=== PATIENT | male | born 1945 | race Asian ===

== ENCOUNTER → 2019-08-01 | Day surgery (SDC) | payer OTHER, BC ==
[2019-07-24 16:07] VITALS: BMI 21.2
[~2019-08-01] MED LIST: ACETAMINOPHEN 325 MG TABLET (FP) PO PRN; ACETYLCHOLINE 1:100 INTRA-OCUL 20 MG/2 ML KIT ONE; BACITRACIN/POLYMYXIN OPH OINT 3.5 GM TUBE ONE; BETAXOLOL HCL 0.25% OPHTHALMIC 10 ML DROPSBTL ONE; CYCLOPENTOLATE HCL 1% OPHTH SOLN 2 ML BOTTLE ONE; EPI-SHUGARCAINE (EPINEPHRINE 0.025% & LIDOCAINE-PF 0.75%) 4ML ONE; KETOROLAC TROMETHAMINE 0.5% EYE DROP 1 DROP DROPS ONE; MIDAZOLAM HCL 2 MG/2 ML SINGLE DOSE VIAL ONE; NEO/POLYMYX B SULF/DEXAMETH OPHTHALMIC 5ML BOTTLE ONE; OFLOXACIN 0.3% OPHTHALMIC SOLUTION 5 ML BOTTLE ONE; PHENYLEPHRINE 2.5% OPHTH SOLN 15 ML BOTTLE ONE; POVIDONE-IODINE 5% OPHTHALMIC PREP 30 ML SOLUTION ONE; TETRACAINE 0.5% OPHTH SOLN 2 ML BOTTLE ONE; TROPICAMIDE 1% OPHTH SOLN 15 ML BOTTLE ONE
[2019-08-01] MEDS: CYCLOPENTOLATE HCL 1% OPHTH SOLN 2 ML BOTTLE OS SCH ×5 (10:25→10:45)
[2019-08-01] MEDS: OFLOXACIN 0.3% OPHTHALMIC SOLUTION 5 ML BOTTLE OS SCH ×5 (10:25→10:45)
[2019-08-01] MEDS: PHENYLEPHRINE 2.5% OPHTH SOLN 15 ML BOTTLE OS SCH ×5 (10:25→10:45)
[2019-08-01] MEDS: TROPICAMIDE 1% OPHTH SOLN 15 ML BOTTLE OS SCH ×5 (10:25→10:45)
[2019-08-01] MEDS: KETOROLAC TROMETHAMINE 0.5% EYE DROP 1 DROP DROPS OS SCH ×5 (10:25→10:45)
[2019-08-01 14:02] VITALS: PULSE 76
[2019-08-01 15:29] VITALS: BP 129/79; TEMP 97
--- NOTE | 2019-08-01 20:18 | OP ---
DATE OF OPERATION: 08/01/2019 PREOPERATIVE DIAGNOSIS: Cataract, left eye. POSTOPERATIVE DIAGNOSIS: Cataract, left eye. PROCEDURE: Cataract extraction via phacoemulsification with insertion of posterior chamber lens implant, left eye, Toric lens. SURGEON: Jackie Wilson MD FURNITURE BUILDER: Jackie Wilson MD ANESTHESIA: Topical with sedation. ESTIMATED BLOOD LOSS: Less than 1 mL. COMPLICATIONS: None. SPECIMENS: None. DESCRIPTION OF PROCEDURE: The patient was identified in the holding area. After all risks, benefits, and alternatives were explained to the patient, informed consent was obtained. The left eye was marked with a marking pen. The patient then entered the operating room on an eye stretcher. After a formal time-out was performed, topical tetracaine eye drops were instilled onto the left eye. The left eye was then prepped and draped in the usual sterile fashion. Before the eye was prepped and draped, the patient was asked to sit up and look straight ahead, and the cardinal axes of astigmatism were marked using a Toric bubble marker and a Toric marking pen. Then, again, the left eye was prepped and draped in the usual sterile fashion. An eyelid speculum was placed beneath the eyelid of the left eye. Then the axis of astigmatism was marked onto the left cornea, which was noted to be 85 degrees. Then an inferotemporal paracentesis incision was created using a 15-degree blade. Topical preservative-free epinephrine and preservative-free lidocaine was then injected into the anterior chamber. Viscoelastic was then injected into the anterior chamber. A 2.4-mm keratome blade was then used to make a superotemporal incision. A 360-degree continuous curvilinear capsulorrhexis was then created using bent cystotome and Utrata forceps. Hydrodissection was performed using balanced saline solution on a cannula. Phacoemulsification was introduced to disassemble and remove the nucleus in its entirety. Irrigation/aspiration was then used to remove any remaining cortical material from the eye. The capsular bag was reformed using viscoelastic. An Shaheed Model [id number] with a power of 26.0 diopter serial number [id number] was inspected and found to be defect free and injected in the capsular bag. Irrigation/aspiration was then used to remove any remaining viscoelastic including posterior to the optic. The intraocular lens was rotated so that the axis of astigmatism on the corneal matched the axis of astigmatism on the intraocular lens, which was noted to be 85 degrees. Topical Miochol was then administered, and the pupil came down and was round. All wounds were hydrated with balanced saline solution. Noted to be watertight. There was a red reflex present. The anterior chamber was deep. The lens was perfectly centered in the capsular bag with the axis of astigmatism at 85 degrees. There was a red reflex present. The eye had adequate pressure, and all wounds were dry. Then antibiotic eyedrops and ointment were then administered to the left eye. The eyelid speculum was removed from the left eye. The left eye was shielded. The patient tolerated the procedure well. Left the operating room in stable condition to follow up in the eye clinic tomorrow morning at 10 o'clock. JACKIE WILSON M.D. [id number]
== END | disposition home or self-care (01) ==
LOC: FASU 09:44
PROVIDERS: ATTEND Ophthalmology
PROC: 08RK3JZ Replacement of Left Lens with Synthetic Substitute, Percutaneous Approach (ICD-10-PCS; principal; 2019-08-01 12:54)
DX: H26.9 Unspecified cataract (principal)

== ENCOUNTER 2019-08-15 11:55 | Day surgery (SDC) | payer OTHER, BC ==
[2019-08-14 09:25] VITALS: BMI 21.2
[~2019-08-15 11:55] MED LIST changes: -ACETYLCHOLINE 1:100 INTRA-OCUL 20 MG/2 ML KIT ONE; -BACITRACIN/POLYMYXIN OPH OINT 3.5 GM TUBE ONE; -BETAXOLOL HCL 0.25% OPHTHALMIC 10 ML DROPSBTL ONE; -CYCLOPENTOLATE HCL 1% OPHTH SOLN 2 ML BOTTLE ONE; -EPI-SHUGARCAINE (EPINEPHRINE 0.025% & LIDOCAINE-PF 0.75%) 4ML ONE; -KETOROLAC TROMETHAMINE 0.5% EYE DROP 1 DROP DROPS ONE; -MIDAZOLAM HCL 2 MG/2 ML SINGLE DOSE VIAL ONE; -NEO/POLYMYX B SULF/DEXAMETH OPHTHALMIC 5ML BOTTLE ONE; -OFLOXACIN 0.3% OPHTHALMIC SOLUTION 5 ML BOTTLE ONE; -PHENYLEPHRINE 2.5% OPHTH SOLN 15 ML BOTTLE ONE; -POVIDONE-IODINE 5% OPHTHALMIC PREP 30 ML SOLUTION ONE; -TETRACAINE 0.5% OPHTH SOLN 2 ML BOTTLE ONE; -TROPICAMIDE 1% OPHTH SOLN 15 ML BOTTLE ONE
[2019-08-15] MEDS ORDERED: MIDAZOLAM HCL 2 MG/2 ML SINGLE DOSE VIAL ONE (12:09)
[2019-08-15] MEDS: TROPICAMIDE 1% OPHTH SOLN 15 ML BOTTLE OD SCH ×5 (12:15→12:35)
[2019-08-15] MEDS: CYCLOPENTOLATE HCL 1% OPHTH SOLN 2 ML BOTTLE OD SCH ×5 (12:15→12:35)
[2019-08-15] MEDS: OFLOXACIN 0.3% OPHTHALMIC SOLUTION 5 ML BOTTLE OD SCH ×5 (12:15→12:35)
[2019-08-15] MEDS: KETOROLAC TROMETHAMINE 0.5% EYE DROP 1 DROP DROPS OD SCH ×5 (12:15→12:35)
[2019-08-15] MEDS: PHENYLEPHRINE 2.5% OPHTH SOLN 15 ML BOTTLE OD SCH ×5 (12:15→12:35)
[2019-08-15] MEDS ORDERED: CYCLOPENTOLATE HCL 1% OPHTH SOLN 2 ML BOTTLE ONE (12:19)
[2019-08-15] MEDS ORDERED: PHENYLEPHRINE 2.5% OPHTH SOLN 15 ML BOTTLE ONE (12:20)
[2019-08-15] MEDS ORDERED: OFLOXACIN 0.3% OPHTHALMIC SOLUTION 5 ML BOTTLE ONE (12:20)
[2019-08-15] MEDS ORDERED: TROPICAMIDE 1% OPHTH SOLN 15 ML BOTTLE ONE (12:20)
[2019-08-15] MEDS ORDERED: KETOROLAC TROMETHAMINE 0.5% EYE DROP 1 DROP DROPS ONE (12:20)
[2019-08-15 12:31] VITALS: TEMP 98.4
[2019-08-15] MEDS ORDERED: ACETAMINOPHEN 325 MG TABLET (FP) PO PRN (13:30)
[2019-08-15] MEDS ORDERED: POVIDONE-IODINE 5% OPHTHALMIC PREP 30 ML SOLUTION ONE (13:33)
[2019-08-15] MEDS ORDERED: ACETYLCHOLINE 1:100 INTRA-OCUL 20 MG/2 ML KIT ONE (13:33)
[2019-08-15 15:43] VITALS: BP 132/72; PULSE 84
--- NOTE | 2019-08-15 16:24 | OP ---
DATE OF OPERATION: 08/15/2019 AGE: [age] years old. SEX: Male. PREOPERATIVE DIAGNOSIS: Cataract, right eye. POSTOPERATIVE DIAGNOSIS: Cataract, right eye. PROCEDURE: Cataract extraction via phacoemulsification with insertion of posterior chamber lens implant, right eye, toric lens. ANESTHESIA: Topical with sedation. ESTIMATED BLOOD LOSS: Less than 1 mL. COMPLICATIONS: None. SPECIMENS: None. PROCEDURE: The patient was identified in the holding area. After all risks, benefits and alternatives were explained to the patient, informed consent was obtained. The right eye was marked with a marking pen. The patient then entered the operating room on an eye stretcher. After a formal timeout was performed, topical tetracaine eyedrops were instilled onto the right eye. The patient was then asked to sit up and look straight ahead, and the right eye was prepped and draped in the usual sterile fashion. Before the eye was prepped and draped in the usual sterile fashion, as the patient was asked to sit up and look straight ahead, the cardinal axes of astigmatism were marked using a toric bubble marker and a toric marking pen. The patient was then asked to lie back down and the right eye was prepped and draped in the usual sterile fashion. An eyelid speculum was placed beneath the eyelids of the right eye. Then the axis of astigmatism was marked on the cornea, which was noted to be 95 degrees, using a toric dial and a toric marking pen. Then a supratemporal paracentesis incision was created using a 15-degree blade. Preservative-free epinephrine and preservative-free lidocaine was then injected into the anterior chamber. Viscoelastic was then injected into the anterior chamber. A 2.4 mm keratome blade was then used to make an infratemporal incision. A 360-degree continuous curvilinear capsulorrhexis was then created using bent cystotome and Utrata forceps. Hydrodissection was performed using balanced saline solution on a cannula. Phacoemulsification was introduced to disassemble and remove the nucleus in its entirety. Irrigation/aspiration was then used to remove any remaining cortical material from the eye. The capsular bag was reformed using viscoelastic. An Shaheed model [id number] with a power of 25.5 diopters, serial number [id number] was inspected and found to be defect free and injected in the capsular bag. Irrigation/aspiration was then used to remove any remaining viscoelastic from the eye. The anterior chamber was re-formed using balanced saline solution and the intraocular lens was rotated so that the axis of astigmatism on the optic matched the axis of stigmatism on the cornea, which was noted to be 95 degrees. Intracameral Miochol was then injected and the pupil came down and was round. All wounds were hydrated with balanced saline solution, noted to be watertight. There was a red reflex present. The anterior chamber was deep. The lens was perfectly centered in the capsular bag with the axis of astigmatism at 95 degrees, and the eye had adequate pressure. Topical antibiotic eyedrops and ointment were then administered to the right eye. The eyelid speculum was removed from the right eye. The right eye was shielded. The patient tolerated the procedure well and left the operating room in stable condition, to follow up in the eye clinic tomorrow morning at 10:00. Eliazar [id number]
== END 2019-08-15 15:45 | disposition home or self-care (01) ==
LOC: FASU 11:55
PROVIDERS: ATTEND Ophthalmology
PROC: 08RJ3JZ Replacement of Right Lens with Synthetic Substitute, Percutaneous Approach (ICD-10-PCS; principal; 2019-08-15 14:06)
DX: H26.9 Unspecified cataract (principal)